=== PATIENT | male | born 1990 | race Hispanic/Latino ===

== ENCOUNTER 2016-10-18 19:58 | Observation (INO) | payer SELFPAY ==
[2016-10-18 19:58] VITALS: BMI 30.5
[2016-10-18 20:04] VITALS: TEMP 97.6; O2SAT 97
--- NOTE | 2016-10-18 20:11 | ED PDOC ---
HPI: Psych/Substance Abuse Time Seen by Provider: 10/18/16 20:09 Chief Complaint (Nursing): Alcohol Ingestion Chief Complaint (Provider): etoh History Per: Patient, EMS Additional Complaint(s): Patient was brought in by ambulance for evaluation of alcohol intoxication and marijuana use today. Patient was found in [place] publicly intoxicated. Patient has unsteady gait upon arrival. Past Medical History Reviewed: Historical Data, Nursing Documentation, Vital Signs Vital Signs: Last Vital Signs Temp 97.6 F 10/18/16 20:00 Pulse 118 H 10/18/16 20:00 Resp 18 10/18/16 20:00 BP 123/67 10/18/16 20:00 Pulse Ox 97 10/18/16 20:00 - Medical History PMH: Anxiety, Asthma, Back Problems, Depression, Emphysema - Family History Family History: States: Hypertension - Social History Current smoker - smoking cessation education provided: Yes Alcohol: Social Drugs: Cannabis - Home Medications Home Medications: Ambulatory Orders Medication Instructions Recorded Alprazolam [Xanax] 2 mg PO 09/22/15 Oxycodone HCl/Acetaminophen 1 tab PO 09/22/15 [Percocet 325 mg-10 mg] - Allergies Allergies/Adverse Reactions: Allergies Allergy/AdvReac Type Severity Reaction Status Date / Time No Known Allergies Allergy Verified 10/18/16 20:04 Review of Systems ROS Statement: Except As Marked, All Systems Reviewed And Found Negative Psych: Positive for: Other (etoh, substance abuse) Physical Exam - Reviewed Nursing Documentation Reviewed: Yes Vital Signs Reviewed: Yes - Physical Exam Appears: Positive for: Well, Non-toxic, No Acute Distress Skin: Negative for: Rash Eye Exam: Positive for: Normal appearance, EOMI, PERRL Cardiovascular/Chest: Positive for: Regular Rate, Rhythm Respiratory: Positive for: Normal Breath Sounds Neurologic/Psych: Positive for: Alert, Oriented, Other (intoxicated, answers questions appropriately) - Laboratory Results Result Diagrams: 10/18/16 22:00 10/18/16 22:00 - ECG O2 Sat by Pulse Oximetry: 97 Pulse Ox Interpretation: Normal Medical Decision Making Medical Decision Makin26 year old intoxicated male Plan: ED observation CBC CMP BAL UDS Disposition - Clinical Impression Clinical Impression: Substance abuse - Patient ED Disposition Is Patient to be Admitted: Transfer of Care - Disposition Disposition: Transfer of Care Disposition Time: 23:55 Condition: FAIR Patient Signed Over To: Elenita Trivedi Handoff Comments: Signed out pending sobriety and final disposition Results - Lab Results Lab Results: 10/18/16 10/18/16 22:00 22:00 WBC 6.6 RBC 5.91 H Hgb 17.9 Hct 53.3 H MCV 90.2 D MCH 30.3 MCHC 33.6 RDW 13.5 Plt Count 216 MPV 9.6 Neut % (Auto) 59.2 Lymph % (Auto) 31.3 [place] % (Auto) 6.1 Eos % (Auto) 3.0 Baso % (Auto) 0.4 Neut # 3.9 Lymph # 2.1 [place] # 0.4 Eos # 0.2 Baso # 0.0 Sodium 145 Potassium 4.3 Chloride 106 Carbon Dioxide 20 L Anion Gap 23 H BUN 10 Creatinine 0.9 Est GFR ( Amer) > 60 Est GFR (Non-Af Amer) > 60 Random Glucose 85 Calcium 9.4 Total Bilirubin 0.5 AST 42 ALT 20 L D Alkaline Phosphatase 69 Total Protein 8.2 Albumin 5.1 H Globulin 3.2 Albumin/Globulin Ratio 1.6 Alcohol, Quantitative 235 H
[2016-10-18 22:07] LABS: BASO % 0.4 % (0.0-2.0); EOS # 0.2 K/uL (0.0-0.7); HEMATOCRIT 53.3 % (35.0-51.0); LYMPH # 2.1 K/uL (1.0-4.3); LYMPH % 31.3 % (20.0-40.0); MEAN CELL VOLUME 90.2 fl (80.0-94.0); MEAN CORPUSCULAR HEMOGLOBIN 30.3 pg (27.0-31.0); MEAN CORPUSCULAR HGB CONC 33.6 g/dL (33.0-37.0); MEAN PLATELET VOLUME 9.6 fl (7.2-11.7); MONO # 0.4 K/uL (0.0-0.8); MONO % 6.1 % (0.0-10.0); NEUT # 3.9 K/uL (1.8-7.0); NEUT % 59.2 % (50.0-75.0); RED CELL DISTRIBUTION WIDTH 13.5 % (11.5-14.5); WHITE BLOOD COUNT 6.6 K/uL (4.8-10.8)
[2016-10-18 22:17] LABS: ALB/GLOB RATIO 1.6 (1.0-2.1); ALCOHOL SERUM 235 mg/dl (0-10); ALKALINE PHOSPHATASE 69 U/L (38-126); ALT/SGPT 20 U/L (21-72); AST/SGOT 42 U/L (17-59); BILIRUBIN,TOTAL 0.5 mg/dl (0.2-1.3); BLOOD UREA NITROGEN 10 mg/dl (9-20); CALCIUM 9.4 mg/dL (8.4-10.2); CARBON DIOXIDE 20 mmol/L (22-30); CHLORIDE 106 mmol/L (98-107); GFR AFRICAN-AMERICAN > 60; GLUCOSE,RANDOM 85 mg/dL (75-110); POTASSIUM 4.3 MMOL/L (3.6-5.0); SODIUM 145 mmol/l (132-148); TOTAL PROTEIN 8.2 G/DL (6.3-8.2)
--- NOTE | 2016-10-19 03:24 | ED PDOC ---
- Laboratory Results Result Diagrams: 10/18/16 22:00 10/18/16 22:00 - ECG O2 Sat by Pulse Oximetry: 97 - Progress ED Course And Treament: Case endorsed to fiction and nonfiction writer prose from Katlyn CEVALLOS pending clinical sobriety 1:00 Patient sleeping; no distress 3:15 Patient awake, alert, oriented x 3. Ambulating steady gait. Stable for discharge. Disposition - Clinical Impression Clinical Impression: Substance abuse - POA Present On Arrival: None - Disposition Disposition: Routine/Home Disposition Time: 03:23 Condition: STABLE
[2016-10-19 03:48] VITALS: BP 118/64; PULSE 78; RESP 16
== END 2016-10-19 03:23 | disposition home or self-care (01) ==
LOC: H.ER 19:58 → H.EROBSV 21:38
PROVIDERS: ADMIT Emergency Medicine; ATTEND Emergency Medicine
DX: F10.129 Alcohol abuse with intoxication, unspecified (principal); J45.909 Unspecified asthma, uncomplicated; F41.8 Other specified anxiety disorders; F14.10 Cocaine abuse, uncomplicated
CPT/HCPCS: 80053; 82948; 85025; 99284; G0378; G0480